=== PATIENT | female | born 2000 | race Caucasian/White ===

== ENCOUNTER 2020-01-06 20:35 | Emergency (ER) | payer BC, OTHER ==
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
[2020-01-07] MEDS ORDERED: TETRACAINE HCL 0.5% OPH SOLN 4 ML ONE (00:27)
[2020-01-07 00:47] VITALS: BP 135/86
== END 2020-01-07 00:45 | disposition home or self-care (01) ==
LOC: ER 20:35
DX: T65.893A Toxic effect of other specified substances, assault, initial encounter (principal); H53.8 Other visual disturbances; Y92.512 Supermarket, store or market as the place of occurrence of the external cause; Y93.89 Activity, other specified; F17.200 Nicotine dependence, unspecified, uncomplicated
CPT/HCPCS: 99283; J3490